=== PATIENT | female | born 1950 | race Caucasian/White ===

== ENCOUNTER → 2019-08-04 | Outpatient (CLI) | payer MEDICARE, MEDICAID ==
[~2019-08-04] MED LIST: AMBRISENTAN PO; ASPI-1393 PO; ATOR-2 PO; CALC667C4 PO; CARV3.1242 PO; GABA-529 PO; HYDR100T26 PO; LOSA100T32 PO; MINO2.5T19 PO; OMEP20CA5 PO; VITAMIN B12 PO; VITAMIN D2 PO; [UNRECOGNIZED DRUG - OTHER] PO
== END | disposition home or self-care (01) ==
LOC: US 09:03
PROVIDERS: ATTEND Internal Medicine Gastroenterology
DX: K74.60 Unspecified cirrhosis of liver (principal)
CPT/HCPCS: 76700

== ENCOUNTER 2020-04-27 13:22 | Inpatient (IN) | payer MEDICARE, MEDICAID ==
[~2020-04-27] VITALS: Ht 152.4 cm; Wt 67.1 kg
[~2020-04-27 13:22] MED LIST changes: -ASPI-1393 PO; +ASPI-1497 PO; +OMEP20CA14 PO; -OMEP20CA5 PO
[2020-04-27 14:31] LABS: HEMATOCRIT. 35.9 % (36.0-48.0); HEMOGLOBIN. 11.8 g/dL (12.0-16.0); MEAN CORPUSCULAR HEMOGLOBIN 30.5 pg (28.0-32.0); MEAN CORPUSCULAR VOLUME 93.2 fL (81.0-99.0); MEAN PLATELET VOLUME 8.6 fl (7.4-10.4); PLATELET 223 x1000/uL (130-400); RED BLOOD CELL COUNT 3.85 mill/uL (4.2-5.4); RED CELL DISTRIBUTION WIDTH 17.5 % (11.6-14.6)
[2020-04-27 14:37] LABS: CHLORIDE 99 mEq/L (98-107)
[2020-04-27 14:38] LABS: INR 1.2; PROTHROMBIN TIME 12.7 sec (9.6-11.0)
[2020-04-27 14:46] LABS: CREATINE KINASE 309 IU/L (26-192)
[2020-04-27 14:52] LABS: PLATELET ESTIMATE NORMAL
[2020-04-27] MEDS: ENOXAPARIN 80MG/0.8ML SYR SUBCUT SCH (15:29)
[2020-04-27] MEDS: LOSARTAN POTASSIUM 25 MG TABLET PO SCH (15:29)
[2020-04-27] MEDS: ASPIRIN 81MG TABLET PO SCH (15:29)
[2020-04-27] MEDS ORDERED: METHOCARBAMOL 750MG TABLET PO STA (15:58)
[2020-04-27] MEDS ORDERED: ACETAMINOPHEN 325MG TABLET PO PRN (16:15)
[2020-04-27] MEDS ORDERED: TRAZODONE HCL 50MG TABLET PO PRN (16:15)
[2020-04-27] MEDS ORDERED: ONDANSETRON HCL 4MG/2ML INJ IV PRN (16:15)
[2020-04-27] MEDS ORDERED: DEXTROSE 50% WATER 50ML SYRINGE IV PRN (16:15)
[2020-04-27] MEDS: BLOOD SUGAR DIAGNOSTIC STRIP TEST SCH ×2 (18:00→21:00)
[2020-04-27] MEDS: DILTIAZEM HCL 30MG TABLET PO SCH (18:36)
[2020-04-27] MEDS: INSULIN LISPRO 100 UNITS/ML SUBCUT SCH ×2 (19:09→21:00)
[2020-04-27 22:00] VITALS: BP 100/75
[2020-04-27] MEDS: CARVEDILOL 3.125 MG TABLET PO SCH (23:06)
[2020-04-27] MEDS: GABAPENTIN 100MG CAPSULE PO SCH (23:07)
[2020-04-27] MEDS: ATORVASTATIN CALCIUM 20MG TABLET PO SCH (23:07)
[2020-04-28] VITALS: BP 140/84
[2020-04-28] MEDS: DILTIAZEM HCL 30MG TABLET PO SCH ×2 (00:50→05:34)
[2020-04-28] MEDS ORDERED: HYDR-4086 PO (00:58)
[2020-04-28 04:00] VITALS: BP 131/80
[2020-04-28] MEDS: GABAPENTIN 100MG CAPSULE PO SCH (05:34)
[2020-04-28 06:30] LABS: BASOPHILS % 0.8 % (0.0-2.0); EOSINOPHILS % 2.6 % (0.0-5.0); HEMATOCRIT. 34.9 % (36.0-48.0); HEMOGLOBIN. 11.3 g/dL (12.0-16.0); MEAN CORPUSCULAR VOLUME 92.3 fL (81.0-99.0); MEAN PLATELET VOLUME 8.6 fl (7.4-10.4); MONOCYTES % 11.2 % (2.0-8.0); NEUTROPHILS % 76.4 % (40.0-76.0); PLATELET 227 x1000/uL (130-400); RED BLOOD CELL COUNT 3.78 mill/uL (4.2-5.4); RED CELL DISTRIBUTION WIDTH 17.4 % (11.6-14.6)
[2020-04-28] MEDS: BLOOD SUGAR DIAGNOSTIC STRIP TEST SCH ×4 (06:42→21:15)
[2020-04-28 06:52] LABS: T4 FREE 0.93 ng/dL (0.76-1.46)
[2020-04-28] MEDS: INSULIN LISPRO 100 UNITS/ML SUBCUT SCH ×4 (07:50→21:00)
[2020-04-28 08:00] VITALS: BP 128/65
[2020-04-28] MEDS: OMEPRAZOLE 20MG CAPSULE EXTENDED RELEASE PO SCH (08:59)
[2020-04-28] MEDS: CARVEDILOL 3.125 MG TABLET PO SCH ×2 (08:59→20:35)
[2020-04-28] MEDS: LOSARTAN POTASSIUM 25 MG TABLET PO SCH (08:59)
[2020-04-28] MEDS: ASPIRIN 81MG TABLET PO SCH (08:59)
[2020-04-28] MEDS: DILTIAZEM HCL 60MG TABLET PO SCH ×2 (12:50→18:00)
[2020-04-28] MEDS: GABAPENTIN 300MG CAPSULE PO SCH ×2 (13:37→21:08)
[2020-04-28 16:00] VITALS: BP 106/58
[2020-04-28] MEDS: HYDROCODONE/ACETAMINOPHEN 5/325MG TABLET PO PRN (16:34)
[2020-04-28] MEDS: CITALOPRAM HYDROBROMIDE 10MG TABLET PO SCH (18:34)
[2020-04-28] MEDS: ENOXAPARIN 80MG/0.8ML SYR SUBCUT SCH (18:34)
[2020-04-28] MEDS: MORPHINE SULFATE 2 MG/ML CPJ (NOT FOR IM USE) IV PRN (18:35)
[2020-04-28 20:00] VITALS: BP_SYST 104; BP_SYST 155; BP_DIAS 60; BP_DIAS 66
[2020-04-28] MEDS: ATORVASTATIN CALCIUM 20MG TABLET PO SCH ×2 (20:36→21:00)
[2020-04-29] VITALS: BP 110/65
[2020-04-29 04:00] VITALS: BP 120/60
[2020-04-29 06:12] LABS: HEMOGLOBIN. 10.7 g/dL (12.0-16.0); MEAN CORPUSCULAR HEMOGLOBIN 30.1 pg (28.0-32.0); MEAN CORPUSCULAR VOLUME 93.1 fL (81.0-99.0); MEAN PLATELET VOLUME 8.9 fl (7.4-10.4); PLATELET 187 x1000/uL (130-400); RED BLOOD CELL COUNT 3.55 mill/uL (4.2-5.4); RED CELL DISTRIBUTION WIDTH 17.1 % (11.6-14.6)
[2020-04-29] MEDS: DILTIAZEM HCL 60MG TABLET PO SCH ×4 (06:34→21:01)
[2020-04-29] MEDS: BLOOD SUGAR DIAGNOSTIC STRIP TEST SCH ×4 (06:34→20:58)
[2020-04-29] MEDS: INSULIN LISPRO 100 UNITS/ML SUBCUT SCH ×4 (06:34→20:59)
[2020-04-29] MEDS: GABAPENTIN 300MG CAPSULE PO SCH ×3 (06:34→21:01)
[2020-04-29 08:00] VITALS: BP 104/44
[2020-04-29] MEDS: LOSARTAN POTASSIUM 25 MG TABLET PO SCH ×2 (09:00→09:50)
[2020-04-29] MEDS: OMEPRAZOLE 20MG CAPSULE EXTENDED RELEASE PO SCH (09:51)
[2020-04-29] MEDS: CITALOPRAM HYDROBROMIDE 10MG TABLET PO SCH (09:51)
[2020-04-29] MEDS: CARVEDILOL 3.125 MG TABLET PO SCH (09:51)
[2020-04-29] MEDS: ASPIRIN 81MG TABLET PO SCH (09:52)
[2020-04-29 12:00] VITALS: BP 102/32
[2020-04-29] MEDS ORDERED: SODIUM POLYSTYRENE SULFONATE 15 G/60 ML BOT PO SCH (13:00)
[2020-04-29 13:16] LABS: PLATELET ESTIMATE NORMAL
[2020-04-29] MEDS ORDERED: MINERAL OIL ENEMA 133ML PR ONE (13:45)
[2020-04-29] MEDS ORDERED: MAGNESIUM HYDROXIDE 400MG/5ML 30ML UDC PO PRN (13:45)
[2020-04-29] MEDS ORDERED: DOCUSATE SODIUM 100MG CAPSULE PO PRN (13:45)
[2020-04-29] MEDS ORDERED: BISACODYL 10MG SUPP PR PRN (13:45)
[2020-04-29] MEDS ORDERED: POLYETHYLENE GLYCOL 3350 (17GM) 1 DOSE PACK PO PRN (13:45)
[2020-04-29 16:30] VITALS: BP 99/49
[2020-04-29] MEDS: ENOXAPARIN 80MG/0.8ML SYR SUBCUT SCH (18:14)
[2020-04-29 20:00] VITALS: BP 125/45
[2020-04-29] MEDS: ATORVASTATIN CALCIUM 20MG TABLET PO SCH (20:58)
[2020-04-29] MEDS: HYDROCODONE/ACETAMINOPHEN 5/325MG TABLET PO PRN (21:00)
[2020-04-29] MEDS ORDERED: SENNOSIDES/DOCUSATE SOD 8.6/50MG TABLET PO PRN (21:00)
[2020-04-30] VITALS: BP 139/58
[2020-04-30] MEDS: MORPHINE SULFATE 2 MG/ML CPJ (NOT FOR IM USE) IV PRN (00:12)
[2020-04-30 04:00] VITALS: BP 133/92
[2020-04-30] MEDS: HYDROCODONE/ACETAMINOPHEN 5/325MG TABLET PO PRN ×2 (04:39→20:29)
[2020-04-30] MEDS: DILTIAZEM HCL 60MG TABLET PO SCH ×3 (05:45→20:28)
[2020-04-30] MEDS: GABAPENTIN 300MG CAPSULE PO SCH ×3 (05:46→20:27)
[2020-04-30] MEDS: BLOOD SUGAR DIAGNOSTIC STRIP TEST SCH ×4 (06:44→20:27)
[2020-04-30 07:19] LABS: HEMATOCRIT. 32.2 % (36.0-48.0); HEMOGLOBIN. 10.4 g/dL (12.0-16.0); MEAN CORPUSCULAR HEMOGLOBIN 30.5 pg (28.0-32.0); MEAN PLATELET VOLUME 8.8 fl (7.4-10.4); PLATELET 206 x1000/uL (130-400); RED BLOOD CELL COUNT 3.43 mill/uL (4.2-5.4); RED CELL DISTRIBUTION WIDTH 17.9 % (11.6-14.6)
[2020-04-30 08:00] VITALS: BP 124/54
[2020-04-30] MEDS: CITALOPRAM HYDROBROMIDE 10MG TABLET PO SCH (09:01)
[2020-04-30] MEDS: LOSARTAN POTASSIUM 25 MG TABLET PO SCH (09:01)
[2020-04-30] MEDS: FAMOTIDINE 20MG TABLET PO SCH (09:02)
[2020-04-30] MEDS: ASPIRIN 81MG TABLET PO SCH (09:03)
[2020-04-30] MEDS: INSULIN LISPRO 100 UNITS/ML SUBCUT SCH ×4 (09:04→20:27)
[2020-04-30 12:00] VITALS: BP 141/70
[2020-04-30 12:25] LABS: PLATELET ESTIMATE NORMAL
[2020-04-30] MEDS: INSULIN GLARGINE UD 100 UNITS/ML SYR SUBCUT SCH ×2 (14:00→20:25)
[2020-04-30] MEDS: ENOXAPARIN 80MG/0.8ML SYR SUBCUT SCH (15:19)
[2020-04-30 16:30] VITALS: BP 141/57
[2020-04-30 20:02] VITALS: BP 118/58
[2020-04-30] MEDS: ATORVASTATIN CALCIUM 20MG TABLET PO SCH (20:27)
[2020-05-01] VITALS: BP 179/137
[2020-05-01] MEDS: MORPHINE SULFATE 2 MG/ML CPJ (NOT FOR IM USE) IV PRN (00:56)
[2020-05-01 04:00] VITALS: BP 121/96
[2020-05-01] MEDS: DILTIAZEM HCL 60MG TABLET PO SCH ×2 (05:46→14:34)
[2020-05-01] MEDS: GABAPENTIN 300MG CAPSULE PO SCH ×2 (05:46→14:33)
[2020-05-01] MEDS: BLOOD SUGAR DIAGNOSTIC STRIP TEST SCH ×3 (06:21→17:20)
[2020-05-01 06:50] LABS: HEMATOCRIT. 31.5 % (36.0-48.0); HEMOGLOBIN. 10.4 g/dL (12.0-16.0); MEAN CORPUSCULAR VOLUME 93.9 fL (81.0-99.0); MEAN PLATELET VOLUME 9.1 fl (7.4-10.4); PLATELET 189 x1000/uL (130-400); RED BLOOD CELL COUNT 3.36 mill/uL (4.2-5.4); RED CELL DISTRIBUTION WIDTH 17.8 % (11.6-14.6)
[2020-05-01] MEDS: INSULIN LISPRO 100 UNITS/ML SUBCUT SCH ×3 (07:26→17:50)
[2020-05-01 08:00] VITALS: BP 120/57
[2020-05-01] MEDS: FAMOTIDINE 20MG TABLET PO SCH (09:30)
[2020-05-01] MEDS: ASPIRIN 81MG TABLET PO SCH (09:30)
[2020-05-01] MEDS: LOSARTAN POTASSIUM 25 MG TABLET PO SCH (09:30)
[2020-05-01] MEDS: CITALOPRAM HYDROBROMIDE 10MG TABLET PO SCH (09:31)
[2020-05-01] MEDS ORDERED: MORPHINE SULFATE 2 MG/ML CPJ (NOT FOR IM USE) IV PRN (11:00)
[2020-05-01] MEDS ORDERED: LANTUSUD SUBCUT (11:45)
[2020-05-01] MEDS ORDERED: ATOR20TA PO (11:45)
[2020-05-01] MEDS ORDERED: P50 MT (11:45)
[2020-05-01] MEDS ORDERED: TOPUD PO (11:45)
[2020-05-01] MEDS ORDERED: HYDR-4001 PO (11:45)
[2020-05-01] MEDS ORDERED: SENN-3 PO (11:45)
[2020-05-01] MEDS ORDERED: LOSA25TA3 PO (11:45)
[2020-05-01] MEDS ORDERED: DILT60TA35 PO (11:45)
[2020-05-01 12:00] VITALS: BP 115/43
[2020-05-01 12:25] LABS: PLATELET ESTIMATE NORMAL
[2020-05-01] MEDS ORDERED: PREDNISONE 20MG TABLET PO SCH (12:50)
[2020-05-01 14:41] VITALS: BP 115/43
[2020-05-01 16:00] VITALS: BP 118/95
[2020-05-01] MEDS: ENOXAPARIN 80MG/0.8ML SYR SUBCUT SCH (18:56)
== END 2020-05-01 19:37 | disposition home health service (06) | DRG 291 ==
LOC: ER 13:22 → EDBEDREQTM 16:13 → EDBEDREQ 16:13 → ENRESERV 20:36 → EDBEDREQ 21:09 → 6WST 21:48
PROVIDERS: ADMIT Internal Medicine; ATTEND Internal Medicine
PROC: 5A1D70Z Performance of Urinary Filtration, Intermittent, Less than 6 Hours Per Day (ICD-10-PCS; principal; 2020-04-30)
DX: I13.2 Hypertensive heart and chronic kidney disease with heart failure and with stage 5 chronic kidney disease, or end stage renal disease (principal); N18.6 End stage renal disease; I50.23 Acute on chronic systolic (congestive) heart failure; I48.92 Unspecified atrial flutter; E87.1 Hypo-osmolality and hyponatremia; N17.9 Acute kidney failure, unspecified; M54.5 Low back pain; I42.9 Cardiomyopathy, unspecified; E11.22 Type 2 diabetes mellitus with diabetic chronic kidney disease; B19.20 Unspecified viral hepatitis C without hepatic coma; E78.5 Hyperlipidemia, unspecified; F41.9 Anxiety disorder, unspecified; I25.10 Atherosclerotic heart disease of native coronary artery without angina pectoris; K74.60 Unspecified cirrhosis of liver; E11.51 Type 2 diabetes mellitus with diabetic peripheral angiopathy without gangrene; E83.51 Hypocalcemia; E87.5 Hyperkalemia; E87.8 Other disorders of electrolyte and fluid balance, not elsewhere classified; K21.9 Gastro-esophageal reflux disease without esophagitis; E78.00 Pure hypercholesterolemia, unspecified; E11.65 Type 2 diabetes mellitus with hyperglycemia; I27.21 Secondary pulmonary arterial hypertension; I44.30 Unspecified atrioventricular block; M54.9 Dorsalgia, unspecified; K59.00 Constipation, unspecified; M47.816 Spondylosis without myelopathy or radiculopathy, lumbar region; R00.1 Bradycardia, unspecified; I95.9 Hypotension, unspecified; D72.829 Elevated white blood cell count, unspecified; D64.9 Anemia, unspecified; M60.9 Myositis, unspecified; I34.0 Nonrheumatic mitral (valve) insufficiency; I36.1 Nonrheumatic tricuspid (valve) insufficiency; Z99.2 Dependence on renal dialysis; Z88.2 Allergy status to sulfonamides; Z79.82 Long term (current) use of aspirin; Z79.899 Other long term (current) drug therapy
CPT/HCPCS: 36415; 71045; 72148; 73718; 80048; 80053; 82550; 82962; 83036; 83735; 83880; 84439; 84443; 84484; 85025; 85651; 93005; 93306; 93971; 97116; 97162; 97165; 97530; 99291; J1650; J1815; J2270; J7512

== ENCOUNTER 2021-02-10 19:11 | Inpatient (IN) | payer MEDICARE, MEDICAID ==
[~2021-02-10] VITALS: Ht 160 cm; Wt 70.3 kg
[~2021-02-10 19:11] MED LIST changes: -ATOR-2 PO; +ATOR20TA PO; -CARV3.1242 PO; +DILT60TA35 PO; +HYDR-4001 PO; +HYDR-4086 PO; -HYDR100T26 PO; +LANTUSUD SUBCUT; -LOSA100T32 PO; +LOSA25TA3 PO; +P50 MT; +SENN-3 PO; +TOPUD PO
[2021-02-10] MEDS ORDERED: PIPERACILLIN/TAZ 3.375G PREMIX 50 ML IV ONE (20:15)
[2021-02-10] MEDS ORDERED: VANCOMYCIN 1 G PREMIX 200 ML IV ONE (20:15)
[2021-02-10 21:14] LABS: CHLORIDE 96 mEq/L (98-107); HEMATOCRIT. 35.9 % (36.0-48.0); MEAN CORPUSCULAR HEMOGLOBIN 27.9 pg (28.0-32.0); MEAN CORPUSCULAR VOLUME 91.4 fL (81.0-99.0); MEAN PLATELET VOLUME 9.1 fl (7.4-10.4); PLATELET 248 x1000/uL (130-400); RED BLOOD CELL COUNT 3.93 mill/uL (4.2-5.4); RED CELL DISTRIBUTION WIDTH 19.5 % (11.6-14.6)
[2021-02-10 21:17] LABS: INR 1.1; PROTHROMBIN TIME 11.9 sec (9.6-11.0)
[2021-02-10] MEDS ORDERED: HYDROMORPHONE HCL/PF 2MG/ML CPJ IV ONE (21:30)
[2021-02-10] MEDS ORDERED: DIPHENHYDRAMINE 50MG/ML VIAL IV ONE (21:45)
[2021-02-10] MEDS ORDERED: SODIUM BICARBONATE 8.4% 1 MEQ/ML 50ML SYR IV NR (22:00)
[2021-02-10] MEDS ORDERED: DEXTROSE 50% WATER 50ML SYRINGE IV NR (22:00)
[2021-02-10] MEDS ORDERED: INSULIN REGULAR (HUMULIN R) 300UNITS/3ML VIAL IV NR (22:00)
[2021-02-10] MEDS ORDERED: CEFTRIAXONE 2 G PREMIX 50 ML IV ONE (22:15)
[2021-02-10] MEDS ORDERED: SODIUM POLYSTYRENE SULFONATE 15 G/60 ML BOT PO NR (22:15)
[2021-02-10 22:18] LABS: PLATELET ESTIMATE NORMAL
[2021-02-11 01:00] VITALS: BP 154/109
[2021-02-11 01:19] VITALS: BP 154/109
[2021-02-11] MEDS ORDERED: COLL30OI TP (03:24)
[2021-02-11] MEDS ORDERED: TIOT4MIS2 IH (03:24)
[2021-02-11] MEDS ORDERED: ATEN-42 PO (03:24)
[2021-02-11] MEDS ORDERED: APIX2.5T PO (03:24)
[2021-02-11] MEDS ORDERED: IPRA4AER PO (03:24)
[2021-02-11] MEDS ORDERED: CALC667T6 PO (03:28)
[2021-02-11] MEDS ORDERED: DEXTROSE 50% WATER 50ML SYRINGE IV PRN (07:15)
[2021-02-11] MEDS: BLOOD SUGAR DIAGNOSTIC STRIP TEST SCH ×4 (07:20→21:51)
[2021-02-11] MEDS: INSULIN LISPRO 100 UNITS/ML SUBCUT SCH ×4 (07:50→21:59)
[2021-02-11 08:00] VITALS: BP 131/54
[2021-02-11] MEDS ORDERED: ATENOLOL 50 MG TABLET PO SCH (09:00)
[2021-02-11] MEDS ORDERED: SODIUM POLYSTYRENE SULFONATE 15 G/60 ML BOT PO NR (10:00)
[2021-02-11] MEDS: LISINOPRIL 5MG TABLET PO SCH (10:17)
[2021-02-11] MEDS: SEVELAMER CARBONATE 800 MG TABLET PO SCH ×3 (10:17→17:26)
[2021-02-11] MEDS: APIXABAN 2.5 MG TABLET PO SCH ×2 (10:18→17:26)
[2021-02-11] MEDS: CEFEPIME 1,000 MG in DEXTROSE 5% WATER 50 ML IV SCH (10:35)
[2021-02-11] MEDS: FOLIC ACID/VITAMIN B COMP W-C TABLET PO SCH (10:42)
[2021-02-11] MEDS: SERTRALINE HCL 50MG TABLET PO SCH (10:43)
[2021-02-11 12:00] VITALS: BP 155/77
[2021-02-11] MEDS ORDERED: VANCOMYCIN 1 G PREMIX 200 ML IV NR (12:00)
[2021-02-11 16:00] VITALS: BP 119/53
[2021-02-11] MEDS ORDERED: VANCOMYCIN 500 MG PREMIX 100 ML IV SCH (18:00)
[2021-02-11 20:00] VITALS: BP 128/49
[2021-02-11] MEDS: ATORVASTATIN CALCIUM 20MG TABLET PO SCH (21:00)
[2021-02-11] MEDS ORDERED: INSULIN GLARGINE UD 100 UNITS/ML SYR SUBCUT SCH (22:00)
[2021-02-12] VITALS: BP 126/69
[2021-02-12] MEDS ORDERED: SODIUM CHLORIDE 0.9% 1,000 ML IV SCH
[2021-02-12 04:00] VITALS: BP 157/74
[2021-02-12] MEDS ORDERED: BUPIVACAINE HCL 0.5% (5MG/ML) 50ML ONE (07:36)
[2021-02-12] MEDS ORDERED: BACITRACIN 50,000 UNITS/VIAL ONE (07:36)
[2021-02-12 07:47] LABS: HEMATOCRIT. 34.2 % (36.0-48.0); HEMOGLOBIN. 10.9 g/dL (12.0-16.0); MEAN CORPUSCULAR HEMOGLOBIN 28.7 pg (28.0-32.0); MEAN CORPUSCULAR VOLUME 89.5 fL (81.0-99.0); MEAN PLATELET VOLUME 8.6 fl (7.4-10.4); PLATELET 217 x1000/uL (130-400); RED BLOOD CELL COUNT 3.82 mill/uL (4.2-5.4); RED CELL DISTRIBUTION WIDTH 19.2 % (11.6-14.6)
[2021-02-12] MEDS: SEVELAMER CARBONATE 800 MG TABLET PO SCH ×3 (07:50→17:31)
[2021-02-12] MEDS: INSULIN LISPRO 100 UNITS/ML SUBCUT SCH ×4 (07:50→21:12)
[2021-02-12] MEDS: BLOOD SUGAR DIAGNOSTIC STRIP TEST SCH ×4 (07:51→21:12)
[2021-02-12 08:00] VITALS: BP 151/80
[2021-02-12] MEDS ORDERED: ROPIVACAINE HCL 10MG/ML 20 ML VIAL EPI ONE ×2 (08:11→09:18)
[2021-02-12] MEDS ORDERED: MIDAZOLAM HCL 2 MG/2 ML VIAL ONE (08:30)
[2021-02-12] MEDS ORDERED: DIPHENHYDRAMINE 50MG/ML VIAL ONE (08:32)
[2021-02-12] MEDS ORDERED: FENTANYL CITRATE/PF 50MCG/ML 2ML VIAL ONE (08:34)
[2021-02-12] MEDS: LISINOPRIL 5MG TABLET PO SCH (08:59)
[2021-02-12] MEDS: SERTRALINE HCL 50MG TABLET PO SCH (08:59)
[2021-02-12] MEDS: FOLIC ACID/VITAMIN B COMP W-C TABLET PO SCH (08:59)
[2021-02-12] MEDS: ATENOLOL 25MG TABLET PO SCH (08:59)
[2021-02-12] MEDS: APIXABAN 2.5 MG TABLET PO SCH ×2 (08:59→17:31)
[2021-02-12] MEDS ORDERED: HYDRALAZINE 20MG/ML VIAL ONE (08:59)
[2021-02-12] MEDS ORDERED: NITROGLYCERIN OINT 1GM/INCH UDPKT TD SCH (10:00)
[2021-02-12] MEDS ORDERED: NITROGLYCERIN 2% 30 GM OINT. TOP SCH (10:00)
[2021-02-12 11:39] LABS: PLATELET ESTIMATE NORMAL
[2021-02-12] MEDS: CEFEPIME 1,000 MG in DEXTROSE 5% WATER 50 ML IV SCH (11:52)
[2021-02-12 12:35] VITALS: BP 129/69
[2021-02-12] MEDS ORDERED: SODIUM POLYSTYRENE SULFONATE 15 G/60 ML BOT PO NR (13:00)
[2021-02-12 16:00] VITALS: BP 94/55
[2021-02-12 20:00] VITALS: BP 118/56
[2021-02-12] MEDS: ATORVASTATIN CALCIUM 20MG TABLET PO SCH (21:24)
[2021-02-12] MEDS ORDERED: INSULIN GLARGINE UD 100 UNITS/ML SYR SUBCUT SCH (22:00)
[2021-02-13] VITALS: BP 107/59
[2021-02-13 04:00] VITALS: BP 132/61
[2021-02-13] MEDS: INSULIN LISPRO 100 UNITS/ML SUBCUT SCH ×3 (06:44→17:49)
[2021-02-13] MEDS: BLOOD SUGAR DIAGNOSTIC STRIP TEST SCH ×3 (06:44→17:09)
[2021-02-13 08:20] VITALS: BP 171/82
[2021-02-13] MEDS: FOLIC ACID/VITAMIN B COMP W-C TABLET PO SCH (09:15)
[2021-02-13] MEDS: SEVELAMER CARBONATE 800 MG TABLET PO SCH ×3 (09:16→17:17)
[2021-02-13] MEDS: LISINOPRIL 5MG TABLET PO SCH (09:16)
[2021-02-13] MEDS: APIXABAN 2.5 MG TABLET PO SCH ×2 (09:16→17:17)
[2021-02-13] MEDS: ATENOLOL 25MG TABLET PO SCH (09:16)
[2021-02-13 10:20] LABS: HEMATOCRIT. 33.3 % (36.0-48.0); HEMOGLOBIN. 10.4 g/dL (12.0-16.0); MEAN CORPUSCULAR HEMOGLOBIN 28.6 pg (28.0-32.0); MEAN CORPUSCULAR VOLUME 91.2 fL (81.0-99.0); MEAN PLATELET VOLUME 8.2 fl (7.4-10.4); PLATELET 219 x1000/uL (130-400); RED BLOOD CELL COUNT 3.65 mill/uL (4.2-5.4); RED CELL DISTRIBUTION WIDTH 19.1 % (11.6-14.6)
[2021-02-13 10:36] LABS: PHOSPHORUS 6.7 mg/dL (2.5-4.9)
[2021-02-13] MEDS: HYDROCODONE/APAP 7.5/325MG 1 TAB TABLET PO PRN ×2 (11:00→17:20)
[2021-02-13 12:00] VITALS: BP 154/74
[2021-02-13] MEDS ORDERED: HYDR-4001 PO (13:35)
[2021-02-13 16:00] VITALS: BP 144/72
[2021-02-13 18:13] VITALS: BP 144/72
[2021-02-13 18:43] LABS: PLATELET ESTIMATE NORMAL
== END 2021-02-13 20:00 | disposition home health service (06) | DRG 255 ==
LOC: ER 19:11 → 6WST 22:03 → ENRESERV 22:40 → ER 23:41
PROVIDERS: ADMIT Internal Medicine; ATTEND Internal Medicine
PROC: 5A1D70Z Performance of Urinary Filtration, Intermittent, Less than 6 Hours Per Day (ICD-10-PCS; principal; 2021-02-12)
PROC: 0Y6Q0Z1 Detachment at Left 1st Toe, High, Open Approach (ICD-10-PCS; 2021-02-12)
DX: E11.52 Type 2 diabetes mellitus with diabetic peripheral angiopathy with gangrene (principal); I50.23 Acute on chronic systolic (congestive) heart failure; N18.6 End stage renal disease; E87.1 Hypo-osmolality and hyponatremia; E44.1 Mild protein-calorie malnutrition; I42.9 Cardiomyopathy, unspecified; I13.2 Hypertensive heart and chronic kidney disease with heart failure and with stage 5 chronic kidney disease, or end stage renal disease; I48.92 Unspecified atrial flutter; I96 Gangrene, not elsewhere classified; E11.22 Type 2 diabetes mellitus with diabetic chronic kidney disease; E78.5 Hyperlipidemia, unspecified; D64.9 Anemia, unspecified; E87.5 Hyperkalemia; I48.91 Unspecified atrial fibrillation; I08.1 Rheumatic disorders of both mitral and tricuspid valves; I27.21 Secondary pulmonary arterial hypertension; K74.60 Unspecified cirrhosis of liver; B19.20 Unspecified viral hepatitis C without hepatic coma; I25.10 Atherosclerotic heart disease of native coronary artery without angina pectoris; Z99.2 Dependence on renal dialysis; E78.00 Pure hypercholesterolemia, unspecified; J45.909 Unspecified asthma, uncomplicated; Z82.49 Family history of ischemic heart disease and other diseases of the circulatory system; E11.69 Type 2 diabetes mellitus with other specified complication; Z88.0 Allergy status to penicillin; Z88.8 Allergy status to other drugs, medicaments and biological substances; Z88.2 Allergy status to sulfonamides; I27.20 Pulmonary hypertension, unspecified; K21.9 Gastro-esophageal reflux disease without esophagitis; G89.29 Other chronic pain; F41.9 Anxiety disorder, unspecified; R29.6 Repeated falls; E21.3 Hyperparathyroidism, unspecified; L29.9 Pruritus, unspecified; R21 Rash and other nonspecific skin eruption; Z68.27 Body mass index [BMI] 27.0-27.9, adult; Z20.822 Contact with and (suspected) exposure to COVID-19
CPT/HCPCS: 36415; 71045; 73630; 80048; 80053; 80061; 80202; 82962; 83036; 83735; 83880; 84100; 84484; 85025; 86140; 86850; 86900; 87426; 88305; 88311; 93005; 93306; 93922; 97116; 97162; 97530; 99291; J0360; J0692; J1170; J1200; J1815; J2250; J2543; J2795; J3010; J3370; J3490; J7040; J7060